=== PATIENT | male | born 1970 | race Caucasian/White ===

== ENCOUNTER 2020-08-21 11:06 | Emergency (ER) | payer OTHER ==
[2020-08-21] MEDS ORDERED: BACITRACIN ZINC OINT 1 PACKET TOP STA (12:54)
--- NOTE | 2020-08-21 13:16 | ED Physician Documentation ---
History of Present Illness - Stated complaint Stated Complaint: HEAD INJ - Chief complaint Chief Complaint: Laceration - History obtained from History obtained from: Patient - Additonal information Additional information: 49-year-old man, up-to-date on tetanus, presents with laceration to left scalp after hitting it on a plane today. Denies LOC, neck pain, other injury. Review of Systems Skin: reports: Laceration (s) Musculoskeletal: denies: Neck pain Neurologic: reports: Head injury. denies: LOC PD PAST MEDICAL HISTORY - Present Medications Home Medications: Ambulatory Orders Medication Instructions Recorded Confirmed No Known Home Medications 08/21/20 08/21/20 - Allergies Allergies/Adverse Reactions: Allergies Allergy/AdvReac Type Severity Reaction Status Date / Time No Known Drug Allergies Allergy Verified 08/21/20 11:12 PD ED PE NORMAL - Vitals Vital signs reviewed: Yes - General General: Alert and oriented X 3, No acute distress, Well developed/nourished - HEENT HEENT: Atraumatic, PERRL, EOMI - Neck Neck: Supple, no meningeal sign, No bony TTP - Derm Derm: Normal color, Other (7cm laceration of L frontal scalp) - Extremities Extremities: Other (ambulatory without difficulty) - Neuro Neuro: Alert and oriented X 3, infectious diseases physician 2-12 intact, No motor deficit, No sensory deficit, Normal speech - Psych Psych: Normal mood, Normal affect Results - Vitals Vitals: Vital Signs - 24 hr 08/21/20 11:09 Temperature 36.4 C L Heart Rate 89 Respiratory 20 Rate Blood Pressure 132/85 H O2 Saturation 96 Oxygen O2 Source Room air Procedures - Laceration (location) Scalp left Length in cm: 7 Wound type: Curved, Into subcut fat, Into muscle Neurovascular status: Sensory intact, Motor intact, Vascular intact Anesthesia: Lidocaine 1% with epi Wound preparation: Irrigated copiously NS, Wound explored, To the base. No: FB identified Deep layer closure: Vicryl, size #-0 - enter number (4), # sutures - enter number (2) Skin layer closure: Sean (8 sean) Other: Patient tolerated well, No complications, Dressing applied, Tetanus UTD PD MEDICAL DECISION MAKING - ED course ED course: 49-year-old man presents with laceration of left scalp without complication. Repaired without complication. Strict return precautions given. Patient will follow up for staple removal in 7-10 days. Departure - Departure Disposition: 01 Home, Self Care Clinical Impression: Laceration of scalp Condition: Good Instructions: ED Laceration Scalp Stitch Or Stap Comments: You were seen in the emergency department for laceration of the scalp. 8 sean were placed as well as 2 subcutaneous stitches. The stitches under the skin will absorb, but the sean need to be taken out in 7 to 10 days here or at urgent care. Keep your dressing clean and dry for 24 to 48 hours. After that you can resume showering but make sure that you use only mild soaps and pat dry, do not rub. Monitor for any signs of infection and return to the emergency department if you have any concerns.
[2020-08-21 14:00] VITALS: BP 121/85
== END 2020-08-21 14:00 | disposition home or self-care (01) ==
LOC: ED 11:06
DX: S01.01XA Laceration without foreign body of scalp, initial encounter (principal); W22.09XA Striking against other stationary object, initial encounter; Y93.89 Activity, other specified; Y99.0 Civilian activity done for income or pay
CPT/HCPCS: 12032; 99281; 99282; A9270